=== PATIENT | male | born 1945 | race Caucasian/White ===

== ENCOUNTER 2020-02-21 11:48 | Emergency (ER) | payer OTHER, BC ==
[~2020-02-21] VITALS: Ht 172.7 cm; Wt 97.1 kg
[~2020-02-21 11:48] MED LIST: ASPIRIN ADULT L81 M2 PO; LOPRESSOR25 MG PO; LOSARTAN POTASS1 TA5 PO; LUMIGAN50 DRP OPH; METFORMIN HCL1000 MG PO; SIMVASTATIN20 MG PO
[2020-02-21 11:55] VITALS: BP 129/100
[2020-02-21] MEDS ORDERED: TOBRADEX ST EYE5 ML OP (12:44)
[2020-02-21] MEDS ORDERED: PREDNISONE20 M1 PO (12:44)
[2020-02-21] MEDS ORDERED: ACYCLOVIR800 MG PO (12:44)
== END 2020-02-21 12:47 | disposition home or self-care (01) ==
LOC: ED 11:48
DX: B02.39 Other herpes zoster eye disease (principal); I10 Essential (primary) hypertension; E11.9 Type 2 diabetes mellitus without complications; Z87.442 Personal history of urinary calculi; Z79.899 Other long term (current) drug therapy; Z98.890 Other specified postprocedural states; Z87.891 Personal history of nicotine dependence